=== PATIENT | female | born 1965 | race Caucasian/White ===

== ENCOUNTER 2019-03-03 13:31 | Emergency (ER) | payer OTHER ==
[2019-03-03 13:42] VITALS: BP 128/77; PULSE 77; TEMP 98.1; BMI 21.9
[2019-03-03] MEDS ORDERED: diphenhydrAMINE HCL 25 MG CAPSULE (FP) PO ONE (13:51)
[2019-03-03] MEDS ORDERED: predniSONE 20 MG TABLET (UD) PO ONE (13:54)
[2019-03-03] MEDS ORDERED: predniSONE 20 MG TABLET (UD) ONE ×2 (13:55→13:56)
[2019-03-03] MEDS ORDERED: predniSONE 10 MG TABLET (UD) ONE (13:55)
[2019-03-03] MEDS ORDERED: diphenhydrAMINE HCL 50 MG CAPSULE ONE (13:55)
--- NOTE | 2019-03-03 14:10 | PDOC ---
History of Present Illness - General Chief Complaint: Poison [place],Poison Guillermo Exposure Stated Complaint: POISION GUILLERMO Time Seen by Provider: 03/03/19 13:51 History Source: Patient Exam Limitations: No Limitations - History of Present Illness Initial Comments: 03/03/19 14:15 53-year-old female with history of depression presenting with 1 week of intermittent and very pruritic rash/excoriations throughout her body She states she has been gardening in her yard and has been exposed to poison guillermo in the yard. She has not been wearing protective gloves until yesterday. She was exposed to the poison guillermo and subsequently has been scratching herself. She has not been taking any medications except benadryl 25mg as needed. no f/c, no mucosal involvement, no cp, sob, cough or congestion, AP, n/v/d. no other new exposures. 03/03/19 14:52 Past History - Past Medical History Allergies/Adverse Reactions: Allergies Allergy/AdvReac Type Severity Reaction Status Date / Time No Known Allergies Allergy Verified 03/03/19 13:31 Home Medications: Ambulatory Orders traZODone HCL [Desyrel -] 50 mg PO HS 10/01/13 Buspirone HCl 15 mg PO BID tablet 12/15/15 Citalopram Hydrobromide [Celexa -] 30 mg PO DAILY 03/03/19 Dextroamphetamine/Amphetamine [Adderall 10 mg Tablet] 10 mg PO DAILY 03/03/19 Diphenhydramine HCl/Zinc Acet [Benadryl 2% Cream] 1 applic TP BID PRN #1 tube Diphenhydramine [Benadryl -] 50 mg PO Q8H #30 capsule 03/03/19 predniSONE [Deltasone -] 20 mg PO DAILY #7 tablet 03/03/19 predniSONE [Deltasone -] 40 mg PO DAILY #14 tablet 03/03/19 COPD: No Psychiatric Problems: Yes (DEPRESSION, AANXIETY) - Suicide/Smoking/Psychosocial Hx Smoking History: Never smoked Have you smoked in the past 12 months: No Number of Cigarettes Smoked Daily: 10 Information on smoking cessation initiated: No Hx Alcohol Use: No Drug/Substance Use Hx: No Review of Systems - Review of Systems Able to Perform ROS?: Yes Comments:: 03/03/19 14:54 Review of systems Constitutional: no fevers or chills. HEENT: no headache or dizziness. No congestion. No visual/hearing disturbances. CVS: no cp or syncope. Resp: no sob. No cough. Gastrointestinal: no abdominal pain, nausea or vomiting. Genitourinary: no urinary sx, hematuria. MUSCULOSKELETAL: No joint pain and swelling. No neck or back pain. SKIN: no redness or skin changes, no discharge, No wounds. +rash, +excoriations Hematologic: no easy bruising/bleeding. NEUROLOGIC: No headache, dizziness, LOC or altered mental status. No weakness, numbness or tingling. Psych: no anxiety or depression Allergic/Immunologic: no allergies All other systems reviewed and negative, or as documented in HPI. *Physical Exam - Vital Signs Last Vital Signs Temp Pulse Resp BP Pulse Ox 98.1 F 77 20 128/77 100 03/03/19 13:31 03/03/19 13:31 03/03/19 13:31 03/03/19 13:31 03/03/19 13:31 - Physical Exam Comments: 03/03/19 15:04 Physical exam: General: Well appearing, awake and alert, NAD. HEENT: NCAT, PERRL, EOMI, clear conjunctiva, anicteric, no ciliary injection, moist mucus membranes, clear oropharynx, no oral lesions.. Neck: neck supple, FROM Resp: CTAB, normal and even respirations, no respiratory distress CVS: RRR, no murmurs, 2+ peripheral pulses throughout, no peripheral edema Abdomen: soft, NTND, no peritoneal signs. Back: nontender, normal inspection and ROM MSK: no edema, [place] x4, ROM intact. No clubbing or cyanosis. normal bulk and tone. Neuro: alert, no focal neuro deficits. Skin: warm and well perfused, cap refill <2 sec, normal color; long excoriation on right forearm, small maculopapular rash faint in color on left neck, anterior upper chest; no mucosal membrane involvement or desquamatization; no drainage or purulence. 03/03/19 15:09 ED Treatment Course - Medications Given in the ED: ED Medications Discontinued Medications Generic Name Dose Route Start Last Admin Trade Name Freq PRN Reason Stop Dose Admin Diphenhydramine HCl 50 mg 03/03/19 13:51 03/03/19 13:58 Benadryl - PO 03/03/19 13:52 50 mg ONCE ONE Administration Prednisone 60 mg 03/03/19 13:54 03/03/19 13:58 Deltasone - PO 03/03/19 13:55 60 mg ONCE ONE Administration Medical Decision Making - Medical Decision Making 03/03/19 15:06 hpi as documented VS reviewed wnl. rash very much a contact dermatitis hypersensitivity to exposed poison guillermo. no mucosal membrane involvement. airway patent. breathing comfortable no e/o anaphylaxis or systemic sx. no e/o SJS or TEN no e/o cellulitis. pt instructed to clean all clothing, wash hands with soap and water adequately including under nails to remove all urushiol residue. protective gloves and avoid exposure onto clothes. and avoid scratching excessively. benadryl here, topical cream rx'd; proper dosing of benadryl, side effect profile reviewed prednisone taper x 2 week course, 40mg x1 week and 20mg x 2nd week. Pt informed of my clinical impression, treatment recommendations and disposition plan. All questions answered to patient's satisfaction and expressed understanding and comfort with this. Reasons for returning to the ED sooner discussed including new or persistent/worsening symptoms with the patient otherwise, follow up with primary care physician. At the time of discharge, the patient is alert, clinically improved, tolerating po and verbalizes understanding of instructions, satisfied with the care received and felt comfortable with the plan. Patient does not suffer from an acute life- threatening medical condition at this time and is safe for outpatient follow- up. 03/03/19 15:09 *DC/Admit/Observation/Transfer Diagnosis at time of Disposition: Poison guillermo dermatitis - Discharge Dispostion Disposition: HOME Condition at time of disposition: Improved Decision to Admit order: No - Prescriptions Prescriptions: Diphenhydramine [Benadryl -] 50 mg PO Q8H #30 capsule Diphenhydramine HCl/Zinc Acet [Benadryl 2% Cream] 1 applic TP BID PRN #1 tube PRN Reason: itch predniSONE [Deltasone -] 40 mg PO DAILY #14 tablet predniSONE [Deltasone -] 20 mg PO DAILY #7 tablet - Referrals Referrals: Brendon Summers MD [Staff Physician] - - Patient Instructions Printed Discharge Instructions: DI for Poison Guillermo Allergy Additional Instructions: you have poison guillermo please take prednisone 40mg daily x 1 week, then prednisone 20mg daily x 2nd week for total of 2 weeks this is to treat your itch and rash from poison guillermo please wash all your clothes and items, fingernails and hands that may have come into contact with poison guillermo wear gloves and protective gear avoid over scratching and spreading the oils benadryl 50mg every 8 hours as needed for itch and rash and allergies you can also apply the topical cream. - Post Discharge Activity
[2019-03-04] MEDS ORDERED: predniSONE 20 MG TABLET (UD) PO ONE (13:51)
== END 2019-03-03 14:45 | disposition home or self-care (01) ==
LOC: FER 13:31
DX: L23.7 Allergic contact dermatitis due to plants, except food (principal); F41.8 Other specified anxiety disorders
CPT/HCPCS: 99281-25

== ENCOUNTER 2021-04-26 18:01 | Emergency (ER) | payer OTHER ==
[2021-04-26] MEDS ORDERED: SODIUM CHLORIDE 1,000 ML IV ONE (18:07)
[2021-04-26] MEDS ORDERED: METOCLOPRAMIDE HCL INJECTION 10 MG/2 ML VIAL IVPB ONE (18:07)
[2021-04-26] MEDS ORDERED: KETOROLAC TROMETHAMINE 15 MG/ML VIAL IVPUSH ONE (18:07)
[2021-04-26 18:23] VITALS: TEMP 98.3; BMI 21.7
[2021-04-26] MEDS ORDERED: METOCLOPRAMIDE HCL INJECTION 10 MG/2 ML VIAL ONE (18:35)
[2021-04-26] MEDS ORDERED: KETOROLAC TROMETHAMINE 15 MG/ML VIAL ONE (18:35)
[2021-04-26 19:30] VITALS: BP 103/65; PULSE 87
== END 2021-04-26 19:54 | disposition home or self-care (01) ==
LOC: FER 18:01
PROC: 3E033GC Introduction of Other Therapeutic Substance into Peripheral Vein, Percutaneous Approach (ICD-10-PCS; principal; 2021-04-26)
DX: G43.911 Migraine, unspecified, intractable, with status migrainosus (principal)
CPT/HCPCS: 99284-25

== ENCOUNTER 2021-05-18 12:10 | Emergency (ER) | payer OTHER | END 2021-05-18 14:20 | disposition home or self-care (01) | LOC: JVIRT 12:10 | DX: Z20.822 Contact with and (suspected) exposure to COVID-19 (principal) | CPT/HCPCS: C9803; Q3014-GT; U0003; U0005 ==

== ENCOUNTER 2022-01-30 08:51 | Emergency (ER) | payer OTHER ==
[2022-01-30] MEDS ORDERED: LACTATED RINGERS SOLUTION 1,000 ML/1,000 ML INFUS.BAG IV STA (09:00)
[2022-01-30] MEDS ORDERED: ACETAMINOPHEN 325 MG TABLET (FP) PO ONE (09:00)
[2022-01-30 09:10] VITALS: BP 109/84; PULSE 68; TEMP 98.8; BMI 21.9
[2022-01-30] MEDS ORDERED: ACETAMINOPHEN 325 MG TABLET (FP) ONE (09:33)
[2022-01-30 09:48] LABS: INR 0.91 (0.83-1.09); PROTHROMBIN TIME (PATIENT) 10.4 SEC (9.7-13.0)
[2022-01-30 09:53] LABS: ALBUMIN 4.3 g/dl (3.4-5.0); BILIRUBIN,TOTAL 0.9 mg/dl (0.2-1); CALCIUM 8.6 mg/dl (8.5-10); TOT PROT 6.6 g/dl (6.4-8.2)
[2022-01-30 10:45] LABS: EPITHELIAL CELLS FEW /hpf
[2022-01-30 11:32] LABS: BASO % 0.4 % (0-2.0); EOS % 2.4 % (0-4.5); HEMATOCRIT 35.4 % (32.4-45.2); HEMOGLOBIN 12.2 GM/dL (10.7-15.3); LYMPH % 28.9 % (8-40); MCH 32.3 pg (25.7-33.7); MCHC 34.5 g/dl (32.0-36.0); MEAN CELL VOLUME 93.7 fl (80-96); MEAN PLT VOLUME 7.5 fl (7.5-11.1); MONO % 10.5 % (3.8-10.2); NEUT % 57.8 % (42.8-82.8); PLATELET COUNT 171 10^3/uL (134-434); RBC 3.77 M/mm3 (3.60-5.2); RDW 12.2 % (11.6-15.6); WHITE BLOOD COUNT 4.8 K/mm3 (4.0-10.0)
== END 2022-01-30 12:51 | disposition home or self-care (01) ==
LOC: FER 08:51
PROC: 3E0337Z Introduction of Electrolytic and Water Balance Substance into Peripheral Vein, Percutaneous Approach (ICD-10-PCS; principal; 2022-01-30)
DX: R10.11 Right upper quadrant pain (principal)
CPT/HCPCS: 36415; 71046-TC-FY; 76700-TC; 76775-TC; 80053; 81003; 81015; 85025; 85610; 85730; 86850; 86900; 86901; 87086; 96360; 99285-25

== ENCOUNTER 2025-06-23 19:55 | Emergency (ER) | payer OTHER ==
[2025-06-23 20:27] VITALS: BP 106/70; PULSE 62; RESP 18; TEMP 98.2; BMI 26.5
== END 2025-06-23 21:52 | disposition home or self-care (01) ==
LOC: FER 19:55
DX: S63.610A Unspecified sprain of right index finger, initial encounter (principal); W23.0XXA Caught, crushed, jammed, or pinched between moving objects, initial encounter
CPT/HCPCS: 73140-TC-RT-FY; 99283-25